=== PATIENT | female | born 1980 | race Caucasian/White ===

== ENCOUNTER 2018-02-06 19:53 | Emergency (ER) | payer OTHER ==
[2018-02-06] MEDS ORDERED: diphenhydrAMINE 25 MG CAP ONE (21:09)
[2018-02-06] MEDS ORDERED: Metoclopramide HCl 10 MG/2 ML VIAL ONE (21:10)
[2018-02-06] MEDS ORDERED: Lidocaine 1% w/Epinephrine 1:100K 20 ML VIAL ONE (21:42)
[2018-02-06 22:07] LABS: Pregnancy Test - Urine (BHCG) Negative (Negative); Pregu Control Background? CLEAR/WHITE (CLR/WHITE); Pregu Control Bar Appear? YES (CONTROL BAR); Specific Gravity 1.023 (1.002-1.036)
[2018-02-06] MEDS ORDERED: Ketorolac Tromethamine 30 MG/ML VIAL ONE (22:12)
[2018-02-06] MEDS ORDERED: Adacel (T-DAP) 0.5 ML VIAL ONE (22:49)
== END 2018-02-06 23:16 | disposition home or self-care (01) ==
LOC: ERS 19:53
DX: S70.312A Abrasion, left thigh, initial encounter (principal); G43.009 Migraine without aura, not intractable, without status migrainosus; E11.9 Type 2 diabetes mellitus without complications; F32.9 Major depressive disorder, single episode, unspecified; F17.210 Nicotine dependence, cigarettes, uncomplicated; F43.10 Post-traumatic stress disorder, unspecified; Z23 Encounter for immunization; W54.1XXA Struck by dog, initial encounter
CPT/HCPCS: 11200; 20552; 81025; 90471; 90715; 96372; J1885; J2001; J2765

== ENCOUNTER 2018-06-30 20:26 | Emergency (ER) | payer OTHER, SELFPAY ==
--- NOTE | 2018-06-30 21:01 | RAD ---
THREE VIEWS LEFT ANKLE: 06/30/18 HISTORY: Trauma, and bruising, swelling. AP, lateral and oblique views left ankle is obtained. Three views left ankle demonstrates no evidence of left ankle fractures, subluxations or bony lesions . IMPRESSION: Normal three views left ankle. POS: [facility]
--- NOTE | 2018-06-30 21:06 | RAD ---
THREE VIEWS LEFT FOOT: 06/30/18 HISTORY: Swelling and pain. AP, lateral and oblique views left foot is obtained. FINDINGS/IMPRESSION: Three views left foot demonstrates no evidence of acute left foot fractures, subluxations or bony les ions. POS: [facility]
== END 2018-06-30 21:28 | disposition home or self-care (01) ==
LOC: ERS 20:26
DX: S93.402A Sprain of unspecified ligament of left ankle, initial encounter (principal); F32.9 Major depressive disorder, single episode, unspecified; F43.10 Post-traumatic stress disorder, unspecified; F17.210 Nicotine dependence, cigarettes, uncomplicated; G43.909 Migraine, unspecified, not intractable, without status migrainosus; Z79.84 Long term (current) use of oral hypoglycemic drugs; Z79.899 Other long term (current) drug therapy; W19.XXXA Unspecified fall, initial encounter

== ENCOUNTER 2019-02-12 23:39 | Emergency (ER) | payer OTHER ==
[2019-02-13] MEDS ORDERED: Ketorolac Tromethamine 30 MG/ML VIAL ONE (01:36)
[2019-02-13] MEDS ORDERED: Dexamethasone 10 MG/ML VIAL ONE (01:36)
== END 2019-02-13 02:52 | disposition home or self-care (01) ==
LOC: ERS 23:39
DX: J02.9 Acute pharyngitis, unspecified (principal); E11.9 Type 2 diabetes mellitus without complications; G43.909 Migraine, unspecified, not intractable, without status migrainosus; F32.9 Major depressive disorder, single episode, unspecified; F43.10 Post-traumatic stress disorder, unspecified; F17.210 Nicotine dependence, cigarettes, uncomplicated
CPT/HCPCS: 36416; 96372; J1100; J1885